=== PATIENT | male | born 2000 | race Caucasian/White ===

== ENCOUNTER 2023-10-28 09:33 | Emergency (ER) | payer MEDICAID, OTHER ==
[~2023-10-28] VITALS: Ht 167.6 cm; Wt 58.1 kg
[2023-10-28] MEDS: CYCLOBENZAPRINE 10 MG TABLET PO ONE (10:30)
[2023-10-28] MEDS: DOXYCYCLINE HYCLATE (100 MG) 100 MG TABLET PO ONE (10:32)
[2023-10-28] MEDS ORDERED: LIDOCAINE 1% INJ 50 ML MDV IJ ONE (10:35)
[2023-10-28] MEDS: KETOROLAC TROMETHAMINE INJ 60 MG/2 ML VIAL IM ONE (10:35)
[2023-10-28] MEDS ORDERED: CEFTRIAXONE 500 MG VIAL ONE (10:35)
[2023-10-28] MEDS ORDERED: KETOROLAC TROMETHAMINE INJ 30 MG/ML VIAL ONE (10:35)
[2023-10-28] MEDS ORDERED: DOXYCYCLINE HYCLATE (100 MG) 100 MG TABLET ONE (10:36)
[2023-10-28] MEDS ORDERED: CYCLOBENZAPRINE 10 MG TABLET ONE (10:36)
[2023-10-28] MEDS: CEFTRIAXONE 500 MG VIAL IM ONE (10:38)
[2023-10-28 10:39] LABS: BASOPHILS % (AUTO) 0.9 % (0.0-2.0); EOSINOPHILS # (AUTO) 0.2 K/uL (0.0-0.7); EOSINOPHILS % (AUTO) 4.4 % (0.0-6.0); HEMATOCRIT 49 % (39-51); HEMOGLOBIN 16.5 g/dL (13.5-17.5); LYMPHOCYTES # (AUTO) 1.2 K/uL (0.8-4.8); LYMPHOCYTES % (AUTO) 26.5 % (20.0-44.0); MEAN CORPUSCULAR HEMOGLOBIN 29 PG (26.0-33.0); MEAN CORPUSCULAR HGB CONC 34 g/dl (31.0-36.0); MEAN CORPUSCULAR VOLUME 87 fL (80-96); MONOCYTES # (AUTO) 0.4 K/uL (0.1-1.30); NEUTROPHILS # (AUTO) 2.7 K/uL (1.8-8.9); NEUTROPHILS % (AUTO) 59.2 % (43.0-81.0); PLATELET COUNT (AUTO) 253 K/uL (150-450); RED BLOOD CELL COUNT(AUTO) 5.67 MIL/uL (4.5-6.0); RED CELL DISTRIBUTION WIDTH 12.9 % (11.5-15.0); WHITE BLOOD COUNT (AUTO) 4.6 K/uL (4.3-11.0)
[2023-10-28 10:49] LABS: CALCIUM, SERUM 9.1 mg/dL (8.5-10.1); CREATININE 0.8 mg/dL (0.6-1.3)
[2023-10-28 10:52] LABS: APPEARANCE,URINE CLEAR (CLEAR); BILIRUBIN,URINE NEGATIVE (NEGATIVE); BLOOD, URINE NEGATIVE Ery/uL (NEGATIVE); COLOR,URINE YELLOW (YELLOW); KETONES,URINE NEGATIVE (NEGATIVE); LEUKOCYTE ESTERASE ,URINE NEGATIVE (NEGATIVE); NITRITE, URINE NEGATIVE (NEGATIVE); PROTEIN,URINE NEGATIVE (NEGATIVE); UGLUCOSE NEGATIVE (NEGATIVE); UROBILINOGEN,URINE 0.2 EU/dL (0.2)
[2023-10-28 10:55] LABS: BILIRUBIN,DIRECT 0.2 mg/dL (0.0-0.2); TOTAL PROTEIN, SERUM 8.1 g/dL (6.4-8.2)
[2023-10-28] MEDS ORDERED: DOXY-326 PO (11:22)
[2023-10-28] MEDS ORDERED: KETO10TA2 PO (11:22)
[2023-10-28] MEDS ORDERED: CYCL5TAB PO (11:22)
[2023-10-28 11:27] VITALS: BP 131/78; TEMP 98.3; O2SAT 100
[2023-10-29 01:51] LABS: HIV-1 p24 ANTIGEN NON REACTIVE (NONREACTIVE); HIV-1/2 ANTIBODY NON REACTIVE (NONREACTIVE)
[2023-10-29 08:10] LABS: RAPID PLASMA REAGIN QUAL. Non Reactive (Non Reactive)
[2023-10-30 07:09] LABS: CHLAMYDIA TRACHOMATIS NAA Negative (Negative); NEISSERIA GONORRHOEAE NAA Negative (Negative)
[2023-10-31 09:10] LABS: *HSV 1 DNA PCR Negative (Negative); *HSV 2 DNA PCR Negative (Negative)
== END 2023-10-28 11:28 | disposition home or self-care (01) ==
LOC: ER 09:47
DX: S76.012A Strain of muscle, fascia and tendon of left hip, initial encounter (principal); S76.011A Strain of muscle, fascia and tendon of right hip, initial encounter; R30.0 Dysuria; Z60.2 Problems related to living alone; X58.XXXA Exposure to other specified factors, initial encounter; Y93.89 Activity, other specified; Y92.89 Other specified places as the place of occurrence of the external cause; Y99.8 Other external cause status
CPT/HCPCS: 99284; 86592; 86593; 96372 ×2; 73521; 85025; 80048; 82550; 80076; 81003; 36415; 87529; 87806; 87491; 87591; J3490; J0696; J1885

== ENCOUNTER → 2023-12-30 | Emergency (ER) | payer OTHER ==
[~2023-12-30] VITALS: Ht 165.1 cm; Wt 62.6 kg
[~2023-12-30] MED LIST: CYCL5TAB PO; DOXY-326 PO; KETO10TA2 PO; KETO5DRO9 EACHEYE
[2023-12-30 18:55] VITALS: BP 122/71; TEMP 97.5; O2SAT 99
== END | disposition home or self-care (01) ==
LOC: ER 17:36
DX: H10.12 Acute atopic conjunctivitis, left eye (principal); Z60.2 Problems related to living alone

== ENCOUNTER 2024-02-14 15:05 | Emergency (ER) | payer OTHER ==
[~2024-02-14] VITALS: Ht 152.4 cm; Wt 61.2 kg
[2024-02-14 15:34] VITALS: BP 128/79; TEMP 97.5
[2024-02-14] MEDS ORDERED: IBUP-1953 PO (18:19)
[2024-02-14 18:30] VITALS: O2SAT 100
== END 2024-02-14 18:30 | disposition home or self-care (01) ==
LOC: ER 15:11
DX: K13.79 Other lesions of oral mucosa (principal); Z60.2 Problems related to living alone